=== PATIENT | male | born 1975 | race African-American/Black ===

== ENCOUNTER 2022-08-01 11:10 | Emergency (ER) | payer MEDICAID ==
[~2022-08-01] VITALS: Ht 180.3 cm; Wt 86.4 kg
[2022-08-01 11:29] VITALS: BP 158/82
== END 2022-08-01 13:51 | disposition home or self-care (01) ==
LOC: EMS 11:10
DX: Z20.822 Contact with and (suspected) exposure to COVID-19 (principal); Z91.010 Allergy to peanuts
CPT/HCPCS: 99283; U0003